=== PATIENT | female | born 1950 | race Caucasian/White ===

== ENCOUNTER 2019-02-24 21:39 | Emergency (ER) | payer OTHER ==
[~2019-02-24] VITALS: Ht 165.1 cm; Wt 81.7 kg
[2019-02-24] MEDS ORDERED: ASPIRIN81 M2 (21:54)
[2019-02-24] MEDS ORDERED: ATIVAN0.5 MG PO (22:49)
[2019-02-24 23:04] VITALS: BP 139/69
== END 2019-02-24 23:04 | disposition home or self-care (01) ==
LOC: M.ERS 21:39
DX: F41.9 Anxiety disorder, unspecified (principal); Z98.890 Other specified postprocedural states